=== PATIENT | female | born 1985 | race American Indian/Alaskan Native ===

== ENCOUNTER 2016-10-30 03:22 | Emergency (ER) | payer MEDICAID ==
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
[2016-10-30] MEDS ORDERED: ZOFRAN IM ONE (06:54)
[2016-10-30] MEDS ORDERED: DILAUDID IM ONE (06:54)
[2016-10-30] MEDS ORDERED: TORADOL IM ONE (06:54)
--- NOTE | 2016-10-30 07:45 | XRay Report ---
ROUTINE CHEST, TWO VIEWS: HISTORY: chest pain, recent ninth rib fracture. The trachea, heart, mediastinal contour, lung silva and bony thorax are unremarkable. No displaced rib fracture is detected on x-ray. IMPRESSION: Unremarkable chest x-ray.
[2016-10-30 08:57] VITALS: BP 94/61
== END 2016-10-30 09:01 | disposition home or self-care (01) ==
LOC: ED 03:22
DX: S22.31XA Fracture of one rib, right side, initial encounter for closed fracture (principal); S00.11XA Contusion of right eyelid and periocular area, initial encounter; F17.200 Nicotine dependence, unspecified, uncomplicated; V89.2XXA Person injured in unspecified motor-vehicle accident, traffic, initial encounter; Y93.89 Activity, other specified; Y99.9 Unspecified external cause status; Y92.410 Unspecified street and highway as the place of occurrence of the external cause
CPT/HCPCS: 71020; 96372; 99283; J1170; J1885; J2405

== ENCOUNTER 2016-11-05 18:27 | Emergency (ER) | payer MEDICAID | END 2016-11-05 19:35 | disposition left against medical advice (07) | LOC: ED 18:27 | DX: M54.2 Cervicalgia (principal); Z53.21 Procedure and treatment not carried out due to patient leaving prior to being seen by health care provider ==

== ENCOUNTER 2016-12-02 22:04 | Emergency (ER) | payer MEDICAID ==
[2016-12-02 22:33] VITALS: BP 107/67
[2016-12-02 22:53] LABS: Basophils % (Auto) 0.8 % (0.0-1.8); Hematocrit 38.3 % (30.3-42.9); Hemoglobin 12.4 gm/dl (10.1-14.3); Mean Corpuscular HGB Conc 32 % (30-34); Mean Corpuscular Hemoglobin 31 pg (28-32); Mean Corpuscular Volume 96 fl (79-97); Platelet Count 268 K/mm3 (140-440); Red Blood Count 3.99 M/mm3 (3.65-5.03); Red Cell Distribution Width 13.7 % (13.2-15.2); White Blood Count 13.1 K/mm3 (4.5-11.0)
[2016-12-02 23:04] LABS: Partial Thromboplastin Time 27.4 Sec. (24.2-36.6)
[2016-12-02 23:05] LABS: Anion Gap 18 mmol/L; Blood Urea Nitrogen 9 mg/dL (7-17); Calcium 9.1 mg/dL (8.4-10.2); Carbon Dioxide 23 mmol/L (22-30); Chloride 103.3 mmol/L (98-107); Glucose 139 mg/dL (65-100); Potassium 3.7 mmol/L (3.6-5.0); Sodium 141 mmol/L (137-145)
== END 2016-12-03 00:40 | disposition left against medical advice (07) ==
LOC: ED 22:04
DX: R11.2 Nausea with vomiting, unspecified (principal); Z53.21 Procedure and treatment not carried out due to patient leaving prior to being seen by health care provider
CPT/HCPCS: 36415; 80048; 84484; 84703; 85025; 85610; 85730; 93005; 93010; G0480; 80320

== ENCOUNTER 2020-11-24 16:38 | Emergency (ER) | payer SELFPAY | END 2020-11-24 18:42 | disposition left against medical advice (07) | LOC: ED 16:38 | DX: R11.0 Nausea (principal); Z53.21 Procedure and treatment not carried out due to patient leaving prior to being seen by health care provider ==